=== PATIENT | male | born 1970 | race Hispanic/Latino ===

== ENCOUNTER 2018-01-31 20:13 | Emergency (ER) | payer BC ==
[~2018-01-31] VITALS: Ht 165.1 cm; Wt 92.5 kg
[2018-01-31 20:38] LABS: BASOPHILS # (AUTO) 0.1 (0.0-0.1); BASOPHILS % 0.6 % (0.0-1.0); EOSINOPHILS # (AUTO) 0.1 (0.0-0.4); EOSINOPHILS % 0.9 % (0.0-6.0); HEMOGLOBIN 15.2 g/dL (14.0-18.0); LYMPHOCYTES # (AUTO) 3.4 (1.0-3.2); LYMPHOCYTES % 34.6 % (18.0-39.1); MEAN CORPUSCULAR HEMOGLOBIN 27.5 pg (28-32); MEAN CORPUSCULAR HGB CONC 33.8 g/dL (31-35); MEAN CORPUSCULAR VOLUME 81.5 fL (81-99); MONOCYTES # (AUTO) 0.7 (0.2-0.8); MONOCYTES % 6.8 % (4.4-11.3); NEUTROPHILS # (AUTO) 5.5 (2.1-6.9); NEUTROPHILS % 56.1 % (38.7-80.0); PLATELET COUNT 202 x10e3/uL (140-360); RED BLOOD COUNT 5.52 x10e6/uL (4.3-5.7); RED CELL DISTRIBUTION WIDTH 13.5 % (11.7-14.4)
[2018-01-31] MEDS ORDERED: ASPIRIN 81 MG CHEW TAB PO ONE (20:45)
[2018-01-31] MEDS ORDERED: DONNATAL/LIDOCAINE/MAALOX 30 ML SUSP PO ONE (20:45)
[2018-01-31 20:47] LABS: INR 1.04; PROTHROMBIN TIME 12.8 seconds (11.9-14.5)
[2018-01-31 20:48] LABS: PARTIAL THROMBOPLASTIN TIME 29.2 seconds (23.8-35.5)
[2018-01-31 21:00] LABS: ALANINE AMINOTRANSFERASE 38 IU/L (0-55); ALBUMIN 4.1 g/dL (3.5-5.0); ALBUMIN/GLOBULIN RATIO 1.1 (0.8-2.0); ALKALINE PHOSPHATASE 63 IU/L (40-150); AMYLASE 34 U/L (25-125); ANION GAP 11.7 mmol/L (8-16); BLOOD UREA NITROGEN 19 mg/dL (7-26); BUN/CREATININE RATIO 22 (6-25); CALCIUM 9.5 mg/dL (8.4-10.2); CARBON DIOXIDE 24 mmol/L (22-29); CHLORIDE 102 mmol/L (98-107); CREATINE KINASE 169 IU/L (30-200); CREATININE, SERUM 0.87 mg/dL (0.72-1.25); EST GLOMERULAR FILTRATION RATE > 60 ML/MIN (60-); GLUCOSE 170 mg/dL (74-118); LIPASE 24 U/L (8-78); POTASSIUM 3.7 mmol/L (3.5-5.1); SODIUM 134 mmol/L (136-145)
[2018-01-31] MEDS ORDERED: LIDOCAINE VISC 2% SOLN 15 ML UDC ONE (21:36)
[2018-01-31] MEDS ORDERED: MAGNESIUM/ALUMINUM/SIMETHICONE 30 ML UDC ONE (21:37)
[2018-01-31] MEDS ORDERED: BELLADONNA ALK/PHENOBARBITAL 5 ML UDC ONE (21:37)
--- NOTE | 2018-01-31 21:52 | Diagnostic Imaging Report ---
EXAM: CHEST 2 VIEWS, PA and lateral INDICATION: Off and on chest pain COMPARISON: None FINDINGS: LINES/TUBES: None LUNGS: No consolidations or edema. PLEURA: No effusions or pneumothorax. HEART AND MEDIASTINUM: Normal size and contour. BONES AND SOFT TISSUES: No acute findings. IMPRESSION: No acute thoracic abnormality. Signed by: Dr. Bing Dumas M.D. on 01/31/2018 9:48 PM
== END 2018-01-31 22:44 | disposition home or self-care (01) ==
LOC: ER 20:13
DX: R07.89 Other chest pain (principal); R07.1 Chest pain on breathing; F14.180 Cocaine abuse with cocaine-induced anxiety disorder; E11.9 Type 2 diabetes mellitus without complications; Z87.19 Personal history of other diseases of the digestive system
CPT/HCPCS: 36415; 71046; 80053; 82150; 82550; 82553; 83690; 84484; 85025; 85610; 85730; 93005; 99284